=== PATIENT | female | born 1995 ===

== ENCOUNTER 2017-04-07 11:37 | Inpatient (IN) ==
[2017-04-07 12:50] LABS: Basophils % 0.5 % (0.0-0.8); Eosinophils # 0.3 10*3/uL (0.0-0.87); Eosinophils % 3.9 % (0.00-10.9); Hematocrit 34.4 VOL% (35.7-47.0); Hemoglobin 11.8 GM/DL (12.0-16.0); Immature Granulocytes % 0.5 %; Immature Granulocytes Absolute 0.03 #; Lymphocytes # 1.2 10*3/uL (1.4-4.0); Lymphocytes % 18.4 % (21.3-54.2); Mean Corpuscular HGB Conc 34.3 GM/DL (32-36); Mean Corpuscular Hemoglobin 32 PG (27-34); Mean Corpuscular Volume 92.2 FL (87-102); Mean Platelet Volume 11.2 FL (9.6-12.0); Monocytes # 0.3 10*3/uL (0.11-0.8); Neutrophils # 4.6 10*3/uL (1.4-7.4); Neutrophils % 71.7 % (38.7-73.9); Platelet Count 117 T/CUMM (130-400); Red Blood Count 3.73 MC/CUMM (3.8-5.5); Red Cell Distribution Width 12.4 % (9.3-17.3); White Blood Count 6.4 T/CUMM (4-12)
[2017-04-07 12:55] LABS: Apearance,Urine CLOUDY (Clear); Bacteria,Urine Occasional /HPF (Few); Bilirubin,Urine Negative (Negative); Blood, Urine Moderate mg/dL (Negative); Glucose,Urine (UA) Negative (Negative); Ketones,Urine Negative (Negative); Mucus,Urine Occasional /LPF (Occasional); Nitrite,Urine Negative (Negative); Protein,Urine 30 MG/DL; RBC,Urine <1 /HPF (0-4); Squamous Epithelial Cell,Urine Occasional /HPF (0-10); Urine Color Yellow (Yellow); Urine Specific Gravity 1.019 (1.001-1.035); Urine Urobilinogen < 2.0 EU/DL (0.2-1.0); WBC,Urine 2 /HPF (0-6)
[2017-04-07 13:00] LABS: INR 0.9; PT Patient Result 9.4 SECS; Partial Thromboplastin Time 30.9 SECS (0-40)
--- NOTE | 2017-04-07 13:19 | Ultrasound Report ---
Exam: US OB >= 14 weeks fetus Date: 04/07/2017 12:22 PM Indication: No care previous Comparison: None recent Findings: Fetus is in the vertex presentation with anterior placenta present. BPD: 35 weeks 5 days Head circumference: 36 weeks 0 days Abdominal circumference: 20 weeks 3 days Femur length: 37 weeks 6 days Amniotic fluid index: 5.57 cm Estimated weight: 3580 +/- 5 136.9 g or 7 lbs. 14 oz. EFW percentile 94.8% Cervical length: Poorly delineated heart rate: 141 bpm structures: Four-chamber heart view stomach kidneys three-vessel cord insertion and bladder are unremarkable. The exam is otherwise limited due to the age Maternal ovaries not visualized. Impression: 1. 37 week 4 day infiltrates estimated date of delivery of April 24, 2017. No obvious abnormalities present. Study is limited Ultrasound images were stored and captured PROCEDURE INTERPRETED AT [facility] DEPARTMENT OF RADIOLOGY Final Report Signed by: Dr. Devon Johnson
[2017-04-07 13:22] LABS: Alanine Aminotransferase 36 U/L (13-56); Albumin 2.7 G/DL (3.4-5.0); Alkaline Phosphatase 181 U/L (45-117); Aspartate Amino Transferase 27 U/L (0-37); Bilirubin,Total < 0.39 MG/DL (0.2-1.0); Blood Urea Nitrogen 7 MG/DL (7-18); Calcium 8.6 MG/DL (8.5-10.1); Glucose 77 MG/DL (74-106); Osmolality,Calculated 277.3 MOS/KG (273-304); Potassium 4.1 MMOL/L (3.5-5.1); Sodium 141 MMOL/L (136-145); Total Protein 6.3 G/DL (6.4-8.3); Uric Acid 4.7 MG/DL (2.6-6.0)
[2017-04-07 14:13] LABS: HIV Antigen/Antibody Result Nonreactive (Nonreactive); Hepatitis B Surface Ag Quant 0.18 Index; Hepatitis B Surface Ag Result Negative (Negative); Rubella Antibody IgG 106.4 IU/ML
[2017-04-07] MEDS ORDERED: FAMOTIDINE 20 MG/2 ML VIAL IV ONE (14:44)
[2017-04-07] MEDS ORDERED: CITRIC ACID/SODIUM CITRATE 30 ML UDCUP PO ONE (14:44)
[2017-04-07] MEDS ORDERED: ceFAZolin 2,000 MG in PREMIX 1 EACH IV ONE (14:44)
[2017-04-07] MEDS: LACTATED RINGERS 1,000 ML IV SCH (17:09)
[2017-04-07] MEDS ORDERED: ONDANSETRON 4 MG/2 ML VIAL IV PRN (23:17)
[2017-04-07] MEDS ORDERED: MEPERIDINE 50 MG/1 ML VIAL IV PRN (23:17)
[2017-04-08] MEDS: LACTATED RINGERS 1,000 ML IV SCH (00:03)
[2017-04-08] MEDS ORDERED: TERBUTALINE 1 MG/1 ML VIAL SUBCUT ONE (00:04)
[2017-04-08] MEDS ORDERED: FAMOTIDINE 20 MG TABLET PO ONE (07:17)
[2017-04-08] MEDS ORDERED: CITRIC ACID/SODIUM CITRATE 30 ML UDCUP ONE (07:19)
[2017-04-08] MEDS ORDERED: OXYTOCIN/LR 20 UNIT/1,000 ML BAG IV ONE ×2 (07:19→08:38)
[2017-04-08] MEDS ORDERED: PHENYLEPHRINE 1 MG/10 ML SYRINGE IV ONE (07:34)
[2017-04-08] MEDS ORDERED: RHO(D) IMMUNE GLOBULIN 300 MCG SYRINGE IM ONE (08:38)
[2017-04-08] MEDS ORDERED: ONDANSETRON 4 MG/2 ML VIAL IV PRN ×2 (08:38→11:16)
[2017-04-08] MEDS ORDERED: ACETAMINOPHEN 325 MG TABLET PO PRN (08:38)
[2017-04-08] MEDS ORDERED: MAGNESIUM HYDROXIDE SUSP 30 ML UDCUP PO PRN (08:38)
[2017-04-08] MEDS ORDERED: SIMETHICONE CHEW 80 MG TABLET PO PRN (08:38)
--- NOTE | 2017-04-08 08:40 | Operative Note ---
Date of procedure: 04/08/17 Procedure Preformed: Following informed consent patient taken to the operating room where spinal anesthesia was administered without difficulty. She is prepped and draped in usual fashion placed in dorsal supine position with a leftward tilt. A Pfannenstiel skin incision made with scalpel and carried through to the underlying layer fascia with Bovie. The fascia with incision was excised midlines to lateral with Parada scissors. The inferior and superior aspects of the fascial incision were grasped with Auxier clamps, elevated and the rectus muscles dissected off bluntly. The rectus muscles were then midline and the peritoneum identified and entered with Metzenbaum scissors. The cyst extends purely inferiorly with good visualization of the bladder. Bladder blade was then reinserted and the uterus incised in transverse fashion with scalpel. It was head was atraumatically. The nose mouth bulb suctioned. Cord clamped cut and the handed off to waiting nurses. Cord blood was sent. The placenta was then removed manually and the uterus cleared all clots and debris. The uterine incision with #1 Vicryl in a running locked fashion. A second layer same suture was used to obtain hemostasis. The gutters and cleared of all clots and debris and once again hemostasis will be satisfactory. Therefore all instruments from the abdomen. The fascia was repaired with [0] Vicryl in a running fashion. Skin pleasant and soft servando. At the end of the procedure all sponge lap needle counts correct 2. Baby and mother in stable condition. Surgeon / Physician: Thomas Arriaga Post-op diagnosis: same Findings: Liveborn female infant weight 8 lbs. 11 oz. Apgars 9 and 9 Specimens: none sent Estimated blood loss: other (400 mL) Condition: stable Anesthesia: spinal Disposition: floor
--- NOTE | 2017-04-08 08:41 | OB/GYN History & Physical ---
History of Present Illness Chief complaint: Contractions History of present illness: Ms. Mendoza is a 21 year old female Transferred from [facility] secondary to uterine contractions with very limited care. Patient has not been seen since 2016 for her visits. Upon admission to [facility] labor and delivery and ultrasound was obtained which revealed oligohydramnios with PATRICK of 5 cm. Patient is a previous 1. She also had labile blood pressures with no symptomatology. Home Medications Medication Instructions Recorded Confirmed Type No Known Home Medications [No 04/07/17 04/07/17 History Known Home Medications] Allergies Allergy/AdvReac Type Severity Reaction Status Date / Time No Known Allergies Allergy Verified 04/07/17 11:46 12 point system: reviewed and no additional remarkable complaints except as stated Medical,Surgical,& Family Hx - Medical History Endocrine: History of: Diabetes Mellitus (NIDDM) (GESTATIONAL DIABETES W/ 1ST ) Musculoskeletal: No history of: Amputation Reproductive: History of: Complication (DIABETES & HTN) No history of: Ectopic - Surgical History Thoracic Surgeries: Patient denies;: Organ Transplant HEENT Surgeries: Patient denies: Eye Surgery, Tonsilectomy & Adenoidectomy Reproductive Surgeries: Surgical HX of;: Section (2014) - Family History Family History: Reports;: Family Cancer (father-pancreatic cancer), Family Diabetes (mother), Family Hypertension (PT'S FATHER) Denies;: Family Anesthesia Reaction, Family Heart Disease, Family Psychiatric Problems, Family Stroke - Social History Smoking Status: Never smoker Frequency of Alcohol Use: None Type of Drug Use: None Exam PHYSICAL THERAPY ATTENDANT - Constitutional Vitals: Vital Signs Temp Pulse Resp BP 04/08/17 04:00 97.2 F L 99 H 141/88 04/08/17 00:00 97.9 F 66 20 186/95 04/07/17 20:00 97.5 F L 76 20 138/78 04/07/17 16:00 60 18 145/88 General appearance: no acute distress - Head Head exam: Present: normocephalic - ENT ENT exam: Present: normal exam - Neck Neck exam: Present: normal inspection - Respiratory Respiratory exam: Present: clear to auscultation bilaterally - Cardiovascular Cardiovascular exam: Present: regular rate and rhythm - GI/Abdominal GI/Abdominal exam: Present: normal bowel sounds, soft - Extremities Exam Extremities exam: Present: normal inspection - Back Exam Back exam: Present: normal inspection - Neurological Exam Neurological exam: Present: alert, oriented X3 - Psychiatric Psychiatric exam: Present: normal affect, normal mood - Skin Skin exam: Present: normal color, warm Assessment and Plan (1) 37 weeks gestation of Status: Acute Current Visit: Yes (2) Oligohydramnios antepartum Status: Acute Assessment and plan: Patient admitted for repeat section Current Visit: Yes (3) Previous section Status: Acute Current Visit: Yes (4) Gestational hypertension Status: Acute Current Visit: Yes Results - Labs CBC & BMP: 04/07/17 12:36 04/07/17 12:36 Quality Measures - VTE Contraindication to Pharmacological VTE Prophylaxis: High Risk of Bleeding
--- NOTE | 2017-04-08 08:43 | Discharge Summary ---
Hospital Course - Hospital Course Hospital Course: This is a 21 y/o female admitted for due to HTN at 37 weeks. Hospital course post-op unremarkable Diagnosis - Discharge Diagnosis (1) 37 weeks gestation of Status: Acute (2) Oligohydramnios antepartum Status: Acute (3) Previous section Status: Acute (4) Gestational hypertension Status: Acute Specialty Discharge - Follow Up or Referrals Follow up with: Thomas Arriaga MD [Physician] - 1 Week Discharge Plan - Discharge Data Disposition: Disch To Home/Self Care Condition at Discharge: Stable Discharge Diet: advance to your usual diet Activity: no lifting Hygiene: may shower Weight Bearing at Discharge: weight bear as tolerated Driving: not until seen by doctor Contact your physician if you experience:: fever over 101, Difficulty voiding, Redness or swelling, Nausea/Vomiting, Shortness of breath, Bleeding, pain uncontrolled by pain medications - Discharge Medications New HYDROcodone/ACETAMIN 7.5-325 [[place] 7.5-325] 1 tablet PO Q6H #40 tablet - Follow Up or Referral Follow Up: Thomas Arriaga MD [Physician] - 1 Week - Forms/Instructions Instructions: Section (DC), Surgical Site Infections (GEN), Bleeding (DC) Exam - Constitutional Vitals: Period Temp Pulse Resp BP Sys/Lujan Pulse Ox Last 24 Hr 97.2 F-97.9 F 60-99 18-20 138-186/78-95 General appearance: no acute distress - Head Head exam: Present: normocephalic - ENT ENT exam: Present: normal exam - Neck Neck exam: Present: normal inspection - Respiratory Respiratory exam: Present: clear to auscultation bilaterally - Cardiovascular Cardiovascular exam: Present: regular rate and rhythm - GI/Abdominal GI/Abdominal exam: Present: normal bowel sounds, soft - Extremities Exam Extremities exam: Present: normal inspection - Back Exam Back exam: Present: normal inspection - Neurological Exam Neurological exam: Present: alert, oriented X3 - Psychiatric Psychiatric exam: Present: normal affect, normal mood Discharge Results Procedures and tests throughout hospitalization: Pending Orders 04/08/17 07:50 Drug Screen, Urine Stat Urinalysis Stat Labs on day of discharge: Labs from last 24 hours 04/07/17 04/07/17 04/07/17 12:36 12:36 12:36 WBC RBC Hgb Hct MCV MCH MCHC RDW Plt Count MPV Neut % (Auto) Lymph % (Auto) [place] % (Auto) Eos % (Auto) Baso % (Auto) Neut # (Auto) Lymph # (Auto) [place] # (Auto) Eos # (Auto) Baso # (Auto) Immature Gran % Nucleated RBC % Immature Gran # Nucleated RBCs # INR PT Patient/Control Mix Fibrinogen Circ Anticoag PTT Sodium 141 Potassium 4.1 Chloride 109 H Carbon Dioxide 23 Anion Gap 13.1 BUN 7 Creatinine 0.60 GFR Calculation 166 BUN/Creatinine Ratio 11.00 Glucose 77 Calculated Osmolality 277.3 Uric Acid 4.7 Calcium 8.6 Total Bilirubin < 0.39 AST 27 ALT 36 Alkaline Phosphatase 181 H Total Protein 6.3 L Albumin 2.7 L Globulin 3.6 H Albumin/Globulin Ratio 0.7 L Urine Color Urine Appearance Urine pH Ur Specific [place] Urine Protein Urine Glucose (UA) Urine Ketones Urine Blood Urine Nitrate Urine Bilirubin Urine Urobilinogen Urine Leukocytes Urine RBC Urine WBC Ur Squamous Epith Cells Urine Bacteria Urine Mucus Ur Culture Indicated? Treponema pallidum IgG Nonreactive Hep Bs Antigen Negative HIV 1&2 Antigen & Ab Nonreactive Rubella IgG Antibody 106.4 Blood Type O POSITIVE Antibody Screen Negative 04/07/17 04/07/17 04/07/17 12:36 12:36 12:33 WBC 6.4 RBC 3.73 L Hgb 11.8 L Hct 34.4 L MCV 92.2 MCH 32 MCHC 34.3 RDW 12.4 Plt Count 117 L MPV 11.2 Neut % (Auto) 71.7 Lymph % (Auto) 18.4 L [place] % (Auto) 5.0 Eos % (Auto) 3.9 Baso % (Auto) 0.5 Neut # (Auto) 4.6 Lymph # (Auto) 1.2 L [place] # (Auto) 0.3 Eos # (Auto) 0.3 Baso # (Auto) 0.0 Immature Gran % 0.5 Nucleated RBC % 0.0 Immature Gran # 0.03 Nucleated RBCs # 0.00 INR 0.9 PT Patient/Control Mix 9.4 Fibrinogen 412 H Circ Anticoag PTT 30.9 Sodium Potassium Chloride Carbon Dioxide Anion Gap BUN Creatinine GFR Calculation BUN/Creatinine Ratio Glucose Calculated Osmolality Uric Acid Calcium Total Bilirubin AST ALT Alkaline Phosphatase Total Protein Albumin Globulin Albumin/Globulin Ratio Urine Color Yellow Urine Appearance Cloudy Urine pH 6.0 Ur Specific [place] 1.019 Urine Protein 30 Urine Glucose (UA) Negative Urine Ketones Negative Urine Blood Moderate Urine Nitrate Negative Urine Bilirubin Negative Urine Urobilinogen < 2.0 H Urine Leukocytes Negative Urine RBC <1 Urine WBC 2 Ur Squamous Epith Cells Occasional Urine Bacteria Occasional Urine Mucus Occasional Ur Culture Indicated? Not indicated Treponema pallidum IgG Hep Bs Antigen HIV 1&2 Antigen & Ab Rubella IgG Antibody Blood Type Antibody Screen DS: Provider Date of admission: 04/07/17 14:45 Primary care physician: Monty Posadas MD Attending physician on admission: Thomas Arriaga MD Consults: 04/07/17 14:45 Consult to Anesthesiology [CONS] Routine Consulting Provider: Reason for Anesthesiology: Pre-op Clearance 04/08/17 08:38 Consult to Logistical Engineer [CONS] Routine Consult Logistical Engineer: Breast Feeding Discharging clinician: Thomas Arriaga MD
--- NOTE | 2017-04-08 08:43 | Anesthesia Post-Op ---
Anesthesia Post OP - Post Ansesthetic Evaluation Patient seen in post op: Yes Resp: within normal limits CV: within normal limits Mental: within normal limits Temp: within normal limits [id number]: within normal limits Nausea and Vomiting: within normal limits Pain: within normal limits
[2017-04-08] MEDS ORDERED: fentaNYL 100 MCG/2 ML VIAL ONE (08:47)
[2017-04-08] MEDS ORDERED: MORPHINE 10 MG/10 ML VIAL ONE (08:48)
[2017-04-08] MEDS ORDERED: LACTATED RINGERS 1,000 ML IV SCH (09:00)
[2017-04-08 09:21] LABS: Apearance,Urine CLEAR (Clear); Bilirubin,Urine Negative (Negative); Blood, Urine Moderate mg/dL (Negative); Glucose,Urine (UA) Negative (Negative); Ketones,Urine Negative (Negative); Mucus,Urine Occasional /LPF (Occasional); Nitrite,Urine Negative (Negative); Protein,Urine Negative; RBC,Urine 1 /HPF (0-4); Squamous Epithelial Cell,Urine Occasional /HPF (0-10); Urine Color Yellow (Yellow); Urine Specific Gravity 1.011 (1.001-1.035); Urine Urobilinogen < 2.0 EU/DL (0.2-1.0); WBC,Urine <1 /HPF (0-6)
[2017-04-08 09:33] LABS: Barbiturates Screen,Urine Negative (Negative); Benzodiazepines Screen,Urine Negative (Negative); Cannabinoid Screen,Urine Negative (Negative); Opiate Screen,Urine Negative (Negative); Phencyclidine Screen,Urine Negative (Negative)
[2017-04-08] MEDS ORDERED: diphenhydrAMINE 50 MG/1 ML VIAL IV PRN ×2 (11:16→23:40)
[2017-04-08] MEDS ORDERED: hydrOXYzine HCL 25 MG/1 ML VIAL IM PRN (11:16)
[2017-04-08] MEDS: HYDROmorphone 2 MG/1 ML VIAL IV PRN ×2 (11:27→22:21)
[2017-04-08 16:31] LABS: Basophils % 0.4 % (0.0-0.8); Eosinophils # 0.2 10*3/uL (0.0-0.87); Eosinophils % 2.4 % (0.00-10.9); Hematocrit 30.1 VOL% (35.7-47.0); Hemoglobin 10.6 GM/DL (12.0-16.0); Immature Granulocytes % 0.1 %; Immature Granulocytes Absolute 0.01 #; Lymphocytes # 1.3 10*3/uL (1.4-4.0); Mean Corpuscular HGB Conc 35.2 GM/DL (32-36); Mean Corpuscular Hemoglobin 32 PG (27-34); Mean Corpuscular Volume 91.2 FL (87-102); Mean Platelet Volume 11.5 FL (9.6-12.0); Monocytes # 0.5 10*3/uL (0.11-0.8); Monocytes % 6.2 % (1.7-12.7); Neutrophils # 5.7 10*3/uL (1.4-7.4); Neutrophils % 73.9 % (38.7-73.9); Platelet Count 100 T/CUMM (130-400); Red Cell Distribution Width 12.3 % (9.3-17.3); White Blood Count 7.6 T/CUMM (4-12)
[2017-04-08] MEDS: IBUPROFEN 800 MG TABLET PO PRN (17:25)
[2017-04-08] MEDS: DOCUSATE SODIUM 100 MG CAPSULE PO SCH (21:59)
[2017-04-09 06:53] LABS: Basophils % 0.3 % (0.0-0.8); Eosinophils # 0.3 10*3/uL (0.0-0.87); Eosinophils % 3.7 % (0.00-10.9); Hematocrit 30.2 VOL% (35.7-47.0); Hemoglobin 10.1 GM/DL (12.0-16.0); Immature Granulocytes % 0.4 %; Immature Granulocytes Absolute 0.03 #; Lymphocytes # 1.3 10*3/uL (1.4-4.0); Lymphocytes % 17.4 % (21.3-54.2); Mean Corpuscular HGB Conc 33.4 GM/DL (32-36); Mean Corpuscular Hemoglobin 31 PG (27-34); Mean Corpuscular Volume 91.8 FL (87-102); Mean Platelet Volume 11.5 FL (9.6-12.0); Monocytes # 0.5 10*3/uL (0.11-0.8); Monocytes % 6.6 % (1.7-12.7); Neutrophils # 5.2 10*3/uL (1.4-7.4); Neutrophils % 71.6 % (38.7-73.9); Platelet Count 101 T/CUMM (130-400); Red Blood Count 3.29 MC/CUMM (3.8-5.5); Red Cell Distribution Width 12.4 % (9.3-17.3); White Blood Count 7.3 T/CUMM (4-12)
[2017-04-09] MEDS: DOCUSATE SODIUM 100 MG CAPSULE PO SCH ×2 (08:45→20:09)
--- NOTE | 2017-04-09 08:46 | OB/GYN Progress Note ---
Assessment and Plan (1) 37 weeks gestation of Status: Acute Current Visit: Yes (2) Oligohydramnios antepartum Status: Acute Assessment and plan: Patient admitted for repeat section Current Visit: Yes (3) Previous section Status: Acute Current Visit: Yes (4) Gestational hypertension Status: Acute Current Visit: Yes (5) delivery delivered Status: Acute Assessment and plan: Routine and postoperative care Current Visit: Yes HEALTH OFFICER - PN: Subj Interval history: Patient doing well without complaints. Pain is well controlled Exam HEALTH OFFICER - Constitutional Vitals: Vital Signs Temp Pulse Resp BP Pulse Ox 04/09/17 07:38 99.1 F 95 H 20 130/78 98 04/09/17 03:58 97.2 F L 77 20 123/87 97 04/09/17 02:00 18 04/08/17 23:43 97.5 F L 73 20 138/79 97 04/08/17 19:15 97.7 F 81 16 129/75 98 04/08/17 16:00 98.0 F 78 20 138/83 98 04/08/17 12:40 96.8 F L 73 20 142/89 98 - Gyencological / Post Surgical Post Surgical Exam Extremities HEALTH OFFICER: Present: normal Abdomen obstetrics progress note: Present: normal appearance, soft Incision OB: Present: normal, dry, intact - Head Head exam: Present: normocephalic - Respiratory Respiratory exam: Present: clear to auscultation bilaterally - Cardiovascular Cardiovascular exam: Present: regular rate and rhythm - GI/Abdominal GI/Abdominal exam: Present: normal bowel sounds, soft - Extremities Exam Extremities exam: Present: normal inspection - Back Exam Back exam: Present: normal inspection - Neurological Exam Neurological exam: Present: alert, oriented X3 - Psychiatric Psychiatric exam: Present: normal affect, normal mood - Skin Skin exam: Present: normal color, warm Results - Labs CBC & BMP: 04/09/17 06:31 04/07/17 12:36
[2017-04-09] MEDS: MULTIVITAMIN (PRENATAL) TABLET PO SCH (08:47)
[2017-04-09] MEDS: IBUPROFEN 800 MG TABLET PO PRN ×2 (12:33→20:10)
[2017-04-10] MEDS: MULTIVITAMIN (PRENATAL) TABLET PO SCH (09:12)
[2017-04-10] MEDS: DOCUSATE SODIUM 100 MG CAPSULE PO SCH (09:12)
[2017-04-10] MEDS: IBUPROFEN 800 MG TABLET PO PRN (09:14)
[2017-04-10 11:48] VITALS: BP 135/77
[2017-04-10] MEDS ORDERED: DIPH/TET/ACEL PERT BOOSTER VACCINE 0.5 ML VIAL IM ONE (13:27)
== END 2017-04-10 16:15 | disposition home or self-care (01) | DRG 540 ==
LOC: N.LDOUT 11:37 → N.LD 11:39 → N.OB 04-08 11:49
PROVIDERS: ADMIT Obstetrics & Gynecology; ATTEND Obstetrics & Gynecology
PROC: LDCSECT (ICD-10-PCS; 2017-04-08 08:06)